=== PATIENT | male | born 1945 | race Caucasian/White ===

== ENCOUNTER 2017-12-26 20:46 | Emergency (ER) | payer OTHER ==
[~2017-12-26] VITALS: Ht 165.1 cm; Wt 77.3 kg
[~2017-12-26 20:46] MED LIST: AMIO200T44 PO; LISI-660 PO; LORA0.5T2 PO; METF-445 PO; PRAV10TA39 PO; WARF2.5 PO
[2017-12-26] MEDS ORDERED: RIVA10 PO (21:19)
[2017-12-26] MEDS ORDERED: METF-960 PO (21:19)
[2017-12-26 22:11] VITALS: BP 154/89
== END 2017-12-26 22:21 | disposition home or self-care (01) ==
LOC: EMS 20:51
DX: B02.9 Zoster without complications (principal); E11.9 Type 2 diabetes mellitus without complications; E78.00 Pure hypercholesterolemia, unspecified; I10 Essential (primary) hypertension; Z79.84 Long term (current) use of oral hypoglycemic drugs; Z79.899 Other long term (current) drug therapy
CPT/HCPCS: 99283

== ENCOUNTER 2019-03-11 01:19 | Emergency (ER) | payer OTHER ==
[~2019-03-11] VITALS: Ht 167.6 cm; Wt 65.5 kg
[~2019-03-11 01:19] MED LIST changes: -LISI-660 PO; -LORA0.5T2 PO; -METF-445 PO; +METF-960 PO; -PRAV10TA39 PO; +RIVA10 PO; -WARF2.5 PO
[2019-03-11] MEDS ORDERED: LISI-660 PO (01:38)
[2019-03-11 01:55] LABS: GLUCOSE,POINT OF CARE 137 MG/DL (70-110)
[2019-03-11 04:28] VITALS: BP 134/80
== END 2019-03-11 04:40 | disposition home or self-care (01) ==
LOC: EMS 01:23
DX: R06.02 Shortness of breath (principal); E11.9 Type 2 diabetes mellitus without complications; E78.00 Pure hypercholesterolemia, unspecified; I10 Essential (primary) hypertension; Z79.899 Other long term (current) drug therapy; Z98.890 Other specified postprocedural states

== ENCOUNTER 2019-04-12 00:03 | Emergency (ER) | payer MEDICARE, OTHER ==
[~2019-04-12] VITALS: Ht 152.4 cm; Wt 65.5 kg
[~2019-04-12 00:03] MED LIST changes: +LISI-660 PO
[2019-04-12 00:17] VITALS: BP 140/83
[2019-04-12 00:41] LABS: GLUCOSE,POINT OF CARE 88 MG/DL (70-110)
== END 2019-04-12 01:09 | disposition left against medical advice (07) ==
LOC: EMS 00:05
DX: F41.9 Anxiety disorder, unspecified (principal); Z53.21 Procedure and treatment not carried out due to patient leaving prior to being seen by health care provider

== ENCOUNTER 2023-12-19 23:46 | Emergency (ER) | payer MEDICARE, MEDICAID ==
[~2023-12-19] VITALS: Ht 165.1 cm; Wt 68.2 kg
[~2023-12-19 23:46] MED LIST changes: -AMIO200T44 PO; +AMIO200T68 PO; -LISI-660 PO; +LISI-892 PO; +METF-1211 PO; -METF-960 PO; -RIVA10 PO; +RIVA10TA PO
[2023-12-20 00:27] LABS: BASOPHILS % (AUTO) 0.6 % (0.0-2.0); EOSINOPHILS % (AUTO) 2.7 % (1.0-6.0); HEMATOCRIT 40.3 % (41-53); HEMOGLOBIN 13.4 g/dL (13.5-17.5); LYMPHOCYTES # (AUTO) 2.7 K/uL (1.0-4.8); LYMPHOCYTES % (AUTO) 38.5 % (22.0-44.0); MEAN CORPUSCULAR HEMOGLOBIN 31.4 pg (26.0-34.0); MEAN CORPUSCULAR HGB CONC 33.3 G/dL (31.0-37.0); MEAN CORPUSCULAR VOLUME 94 fL (80-100); MONOCYTES # (AUTO) 0.6 K/uL (0.1-1.0); MONOCYTES % (AUTO) 8.6 % (2.0-9.0); NEUTROPHILS # (AUTO) 3.5 K/uL (1.8-7.7); NEUTROPHILS % (AUTO) 49.6 % (40.0-70.0); PLATELET COUNT (AUTO) 213 K/uL (150-450); RED BLOOD CELL COUNT(AUTO) 4.27 MIL/uL (4.50-5.90); RED CELL DISTRIBUTION WIDTH 14.5 % (11.5-14.5)
[2023-12-20 00:36] LABS: CALCIUM, TOTAL 8.7 mg/dL (8.8-10.5); CREATININE 1.25 mg/dL (0.60-1.30); POTASSIUM 4.1 mmol/L (3.5-5.1)
[2023-12-20 00:44] LABS: TROPONIN I-HIGH SENSITIVITY 8 ng/L (<76)
[2023-12-20 01:29] VITALS: TEMP 98.3
[2023-12-20 02:29] LABS: PROTHROMBIN TIME 10.3 SEC (9.4-11.6)
[2023-12-20 02:50] LABS: TROPONIN I-HIGH SENSITIVITY 8 ng/L (<76)
[2023-12-20 03:30] VITALS: BP 139/77; PULSE 72; RESP 18; O2SAT 99
[2023-12-20 04:14] LABS: APPEARANCE,URINE CLEAR (CLEAR); BILIRUBIN,URINE NEGATIVE (NEGATIVE); COLOR,URINE COLORLESS (YELLOW); GLUCOSE, URINE (UA) TRACE mg/dL (NEGATIVE); KETONES,URINE NEGATIVE (NEGATIVE); LEUKOCYTE ESTERASE ,URINE NEGATIVE (NEGATIVE); NITRATE,URINE NEGATIVE (NEGATIVE); OCCULT BLOOD,URINE NEGATIVE (NEGATIVE); PH,URINE 6.5 (5.0-8.0); PROTEIN,URINE NEGATIVE (NEGATIVE); SPECIFIC GRAVITIY, URINE 1.007 (1.003-1.030); UROBILINOGEN,URINE <=1.0 mg/dL (<=1.0)
== END 2023-12-20 04:17 | disposition home or self-care (01) ==
LOC: EMS 23:46
DX: R06.02 Shortness of breath (principal); E11.40 Type 2 diabetes mellitus with diabetic neuropathy, unspecified; E78.00 Pure hypercholesterolemia, unspecified; I10 Essential (primary) hypertension; Z98.890 Other specified postprocedural states
CPT/HCPCS: 71045; 80048; 82550; 82962; 83880; 84484; 85025; 85610; 85730; 93005; 99285; 36415-L1; 36415-TC